=== PATIENT | male | born 1995 | race Caucasian/White ===

== ENCOUNTER → 2019-09-25 07:56 | Outpatient (BNVA) | payer SELFPAY | PROVIDERS: Visit Provider Nurse Practitioner | DX: R29.818 Other symptoms and signs involving the nervous system (principal); R53.83 Other fatigue; R42 Dizziness and giddiness; F17.210 Nicotine dependence, cigarettes, uncomplicated | CPT/HCPCS: 99203; 99204 ==

== ENCOUNTER 2019-09-25 09:29 | Outpatient (CLI) | payer SELFPAY ==
[2019-09-25 10:02] LABS: Basophils % 0.4 %; Eosinophils # 0.3 10^3/uL (0.0-0.8); Hematocrit 51.1 % (42.0-52.0); Hemoglobin 16.6 g/dL (11.7-16.6); Lymphocytes % 21.6 %; Mean Corpuscular HGB Conc 32.5 g/dL (30.0-36.0); Mean Corpuscular Hemoglobin 28.5 pg (28.0-34.0); Mean Corpuscular Volume 87.8 fL (80-94); Mean Platelet Volume 10.8 fL (7.4-10.4); Monocytes # 0.6 10^3/uL (0.2-0.9); Monocytes % 6.3 %; Neutrophils # 6.16 10^3/uL (1.8-7.7); Neutrophils % 68.5 %; Nucleated Red Blood Cells % 0 %; Platelet Count 212 10^3/cmm (130-400); Red Blood Count 5.82 10^6/uL (4.1-5.3); Red Cell Distribution Width 13.3 % (12.1-15.1)
[2019-09-25 10:19] LABS: Alanine Aminotransferase 42 U/L (0-41); Albumin Level 4.8 g/dL (3.5-5.2); Alkaline Phosphatase 69 IU/L (40-130); Anion Gap 14.5 (5-19); Aspartate Amino Transferase 26 U/L (0-40); Blood Urea Nitrogen 10 mg/dL (6-20); Calcium 9.3 mg/dL (8.5-10.5); Carbon Dioxide 27 mmol/L (22-29); Chloride 99 mmol/L (98-107); Globulin 3.1 g/dL (1.3-4.6); Glomerular Filtration Rate 103.7 mL/min (90-130); Glucose 183 mg/dL (65-115); Osmolality Calculated 283 mOsm/kg (285-295); Potassium 4.5 mmol/L (3.5-5.1); Sodium 136 mmol/L (136-145); Thyroid Stimulating Hormone 0.57 uIU/mL (0.27-4.20); Total Bilirubin 0.5 mg/dL (0.15-1.2); Total Protein 7.9 g/dL (6.6-8.7)
[2019-09-25 13:50] LABS: Creatine Phosphokinase 363 U/L (39-308)
== END 2019-09-25 09:30 | disposition home or self-care (01) ==
LOC: LAB 09:31
PROVIDERS: Visit Provider Nurse Practitioner
DX: R29.818 Other symptoms and signs involving the nervous system (principal); R53.83 Other fatigue
CPT/HCPCS: 80053; 82550; 84443; 85025

== ENCOUNTER 2019-09-30 08:33 | Outpatient (CLI) | payer SELFPAY ==
--- NOTE | 2019-09-30 08:43 | MR_ITS ---
WS: [id number] MRI HEAD WITH CONTRAST TECHNIQUE: Sagittal T1, T2 axial, T2 axial FLAIR, axial susceptibility weighted imaging, axial diffus ion weighted images, and coronal T2 images were obtained. Pre and post-T1 axial and post T1 coronal i mages. ADC and FSPGR images. CLINICAL INFORMATION: TRANSIENT NEUROLOGICAL SYMPTOMS/FATIGUE COMPARISON: CT FINDINGS: No evidence of restricted diffusion to suggest acute ischemia. Ventricular system and basal cisterns are patent. No suspicious intracranial signal abnormalities. Normal posterior fossa. Normal vascular flow voids at the skull base. No extra-axial fluid collections. No evidence of mass or mass effect. N o hemosiderin on susceptibly weighted images. No abnormal gadolinium enhancement. Normal optic chiasm and pituitary infundibulum. Normal visualized dural venous sinuses. MR/MR head wo/w con [id number] IMPRESSION: 1. No evidence of restricted diffusion to suggest acute ischemia. 2. No suspicious intracranial signal abnormalities. 3. No abnormal gadolinium enhancement. 4. Paranasal sinuses and mastoid air cells are well aerated. 5. No hemosiderin on susceptibly weighted images. 6. No other significant findings.
== END 2019-09-30 08:34 | disposition home or self-care (01) ==
LOC: RADWPI 08:38
PROVIDERS: PCP Family Medicine; Visit Provider Nurse Practitioner
DX: R29.818 Other symptoms and signs involving the nervous system (principal); R53.83 Other fatigue
CPT/HCPCS: 70553; A9579

== ENCOUNTER 2019-10-21 10:49 | Outpatient (CLI) | payer SELFPAY ==
[2019-10-21 11:47] LABS: Creatine Phosphokinase 123 U/L (39-308); Glucose Fasting 91 mg/dL (74-109)
== END 2019-10-21 10:50 | disposition home or self-care (01) ==
LOC: LAB 10:52
PROVIDERS: PCP Family Medicine; Visit Provider Specialist
DX: R29.818 Other symptoms and signs involving the nervous system (principal)
CPT/HCPCS: 82550; 82947

== ENCOUNTER → 2019-11-26 12:54 | Outpatient (BNVA) | payer SELFPAY | PROVIDERS: PCP Family Medicine; Visit Provider Specialist | DX: R56.9 Unspecified convulsions (principal); R53.83 Other fatigue; F17.210 Nicotine dependence, cigarettes, uncomplicated; F17.220 Nicotine dependence, chewing tobacco, uncomplicated | CPT/HCPCS: 95816 ==

== ENCOUNTER 2020-11-04 12:42 | Outpatient (CLI) | payer OTHER, SELFPAY ==
--- NOTE | 2020-11-04 13:00 | MR_ITS ---
WS: [id number] MRI LEFT KNEE NONCONTRAST TECHNIQUE: Axial PD, coronal PD fat sat, coronal PD, sagittal PD, and sagittal PD fat-sat images obta ined. CLINICAL INFORMATION: S82.153A - Displaced fracture of unspecified tibial tuber... COMPARISON: None. FINDINGS: Distal quadriceps and patella tendons are intact. Hypertrophic patella. Small suprapatellar effusion. Again seen is the avulsion involving the tibial eminence nondisplaced with edema. High-grade complet e tear of the ACL. PCL is intact. Diffuse subchondral edema compatible with contusion involving the a nterolateral femoral condyle and posterior lateral tibial plateau. Additional diffuse contusion and e jose j extends into the medial tibial plateau. Slight peripheral extrusion of the lateral meniscus with suggestion of a tiny radial tear at the late ral meniscal root. Normal medial meniscus Normal medial and lateral collateral ligament. Normal popliteus. Normal patella. MR/MR knee LT wo con* [id number] IMPRESSION: 1. High-grade tear of the ACL with associated avulsion of the tibial eminence with edema. Normal PCL. 2. Diffuse edema compatible with contusion involving the anterolateral femoral condyle and posterior lateral tibial plateau. 3. Additional edema extends into the tibial eminence due to nondisplaced avuls ion with additional contusion extending into the medial tibial plateau. 4. Slight lateral extrusion of the lateral meniscus with suggestion of a tiny radial at the lateral meniscal root. Normal medial meniscus 5. Normal patella. 6. Medial and lateral collateral ligaments appear intact. Outbridge grading: grade II: blister-like swelling/fraying of articular cartila ge extending to surface
== END 2020-11-04 12:43 | disposition home or self-care (01) ==
LOC: RADSHAW 12:47
PROVIDERS: PCP Family Medicine; Visit Provider Orthopaedic Surgery
DX: S82.153A Displaced fracture of unspecified tibial tuberosity, initial encounter for closed fracture (principal); S83.512A Sprain of anterior cruciate ligament of left knee, initial encounter; X58.XXXA Exposure to other specified factors, initial encounter; R60.0 Localized edema
CPT/HCPCS: 73721

== ENCOUNTER 2020-11-17 11:33 | Outpatient (RCR) | payer OTHER, SELFPAY | END 2020-11-25 23:59 | disposition home or self-care (01) | LOC: SPT 11:33 | PROVIDERS: PCP Family Medicine; Referring Provider Orthopaedic Surgery; Visit Provider Orthopaedic Surgery | DX: M25.662 Stiffness of left knee, not elsewhere classified (principal) | CPT/HCPCS: 97161 ==